=== PATIENT | female | born 1955 | race Caucasian/White ===

== ENCOUNTER 2019-10-14 08:20 | Day surgery (SDC) | payer OTHER ==
[2019-10-14 08:28] LABS: Absolute Lymphocytes (CBC) 1.1 K/uL (0.7-4.9); Lymphocytes % 29.8 % (15.3-44.8); MPV 8.1 fL (7.6-11.3); RBC Red Blood Cell Count 5.01 M/uL (3.86-4.86)
--- NOTE | 2019-10-14 08:29 | RAD REPORT ---
EXAM DESCRIPTION: RAD - Chest Pa And Lat (2 Views) - 10/14/2019 8:13 am CLINICAL HISTORY: preop, pending breast surgery COMPARISON: None TECHNIQUE: Frontal and lateral views of the chest were obtained. FINDINGS: The lungs are clear. Heart size is normal and central vasculature is within normal limit s. No pleural effusion or pneumothorax seen. No acute bony finding noted. No aortic abnormality. IMPRESSION: No acute cardiopulmonary process.
[2019-10-14] MEDS ORDERED: CEFAZOLIN/SWI 1gm 1 GM/10 ML SYR ONE (08:32)
[2019-10-14] MEDS ORDERED: SCOPOLAMINE HYDROBROMIDE PATCH TD ONE (08:32)
[2019-10-14] MEDS ORDERED: Ringers Lactate 1,000 ML IV ONE ×3 (08:32→11:54)
[2019-10-14] MEDS ORDERED: NS 0.9% VIAL 40 ML ONE (08:51)
[2019-10-14] MEDS ORDERED: GENTAMICIN SULF 80 MG/2ML INJ ONE (08:51)
[2019-10-14] MEDS ORDERED: CEFAZOLIN SODIUM 1 GM/VIAL ONE (08:51)
[2019-10-14] MEDS ORDERED: LIDOCAINE 1% W/EPI 1:100,000 MDV 20 ML VIAL ONE (08:52)
[2019-10-14] MEDS ORDERED: BACITRACIN 50000 UNIT VIAL ONE (08:52)
[2019-10-14] MEDS ORDERED: Mastisol Adhesive Liq ONE (08:52)
--- OUTSIDE RECORDS SUMMARY | 2019-10-14 09:05 | XMS REPORT | Continuity of Care Document ---
:1955 Author Organization [employer] Care Team Providers Name Role Phone [employer] Unavailable Un available Problems Problem Status Onset Classification Date Comments Sourc e Date Reported HTN Active Problem 10/04/2019 eCW: Artie monsivais (hypertension) [facility] Encounter for Active Diagnosis 10/03/2019 eCW: [facility] general adult [facility] medical Family examination Practice without abnormal findings Screening for Active Diagnosis 10/03/2019 eCW: [facility] osteoporosis [facility] Encounter for Active Diagnosis 10/03/2019 eCW: [facility] BMI Active Diagnosis 10/03/2019 eCW: Artie monsivais 28.0-28.9,adult [facility] Medications Medication Details Route Status Patient Ordering Order Source Instructions Provider Date Co Q-10 not NA Active Travis eCW: [facility] MAGNESIUM OTC not NA Active Travis eCW: [facility] Vitamin D3 not NA Active Travis eCW: [facility] lisinopril 1 tab(s) orally Active 20 mg orally Travis eCW: Soria gar once a day [facility] Allergies, Adverse Reactions, Alerts Substance Category Reaction Severity Reaction Status Date Comments S ource type Reported N.K.D.A. Adverse Info Not Adverse eCW: Reaction Available Reaction 0 Suga r [facility] Immunizations No Data Provided for This Section Results No Data Provided for This Section Pathology Reports No Data Provided for This Section Diagnostic Reports No Data Provided for This Section Consultation Notes No Data Provided for This Section Discharge Summaries No Data Provided for This Section History and Physicals No Data Provided for This Section Vital Signs Vital Sign Value Date Comments Source Height 64 09/06/2019 eCW: [facility] Weight 168.4 09/06/2019 eCW: [facility] Temperature Oral (F) 96.7 F 09/06/2019 eCW: Soria gar [facility] Diastolic (mm Hg) 76 09/06/2019 eCW: [facility] Systolic (mm Hg) 126 09/06/2019 eCW: [facility] Encounters No Data Provided for This Section Procedures No Data Provided for This Section Assessment and Plan No Data Provided for This Section Plan of Care No Data Provided for This Section Social History No Data Provided for This Section Family History No Data Provided for This Section Advance Directives No Data Provided for This Section Functional Status No Data Provided for This Section
--- OUTSIDE RECORDS SUMMARY | 2019-10-14 09:05 | XMS REPORT ---
:1955 Author Organization [employer] Care Team Providers Name Role Phone Travis, Shital Provider Role Unavailable Allergies No Known Allergies Problems Problem Type Condition Code Onset Dates Condition Statu s Problem HTN (hypertension) I10 Active Medications No Known Medications Results No Known Results Summary Purpose [employer] Submission
--- OUTSIDE RECORDS SUMMARY | 2019-10-14 09:05 | XMS REPORT | Clinical Summary ---
:1955 Author Organization [facility] [employer] [facility] Address [address] [place] [address] Care Team Providers Name Role Phone Reza Mayfield MD Primary Care Provider Allergies No Known Allergies Medications Medication Sig Dispensed Refills Start End Date Status Date estradiol (ESTRACE) 2 MG Take 2 mg 0 Active tablet by mouth daily. medroxyPROGESTERone Take 5 mg 0 Active (PROVERA) 5 MG tablet by mouth daily. lisinopril (PRINIVIL) 20 Take 1 90 tablet 3 Active mg tabletIndications: tablet (20 0 Essential hypertension mg total) by mouth daily. lisinopril Take 1 90 tablet 1 11/13/19 Discontin ued (PRINIVIL,ZESTRIL) 20 mg tablet (20 9 19 (Reorder) tabletIndications: mg total) Essential hypertension by mouth daily. hydroCHLOROthiazide Take 1 90 tablet 1 11/13/19 Discontinued (HYDRODIURIL) 25 MG tablet (25 9 19 (Discontinued by tabletIndications: Pedal mg total) another edema by mouth clinician) daily. lisinopril Take 1 90 tablet 1 05/05/19 Discontin ued (PRINIVIL,ZESTRIL) 20 mg tablet (20 9 20 (Reorder) tabletIndications: mg total) Essential hypertension by mouth daily. Active Problems Problem Noted Date Chest pain 05/08/2018 Hematometra 01/09/2017 Cervical stenosis (uterine cervix) 01/09/2017 Encounters Date Type Specialty Care Team Description 05/05/2019 Refill Cardiology Magaly Luna MA Med Refill 04/26/2019 Hospital Encounter Radiology Oneal Mauricio Brea st cancer screening by MD mammogram 04/15/2019 Transcribe Orders Access Oneal Mauricio Breas t cancer screening by mammogram (Prim lizette Dx) 11/16/2018 Orders Only Cardiology Alpa Pham RN 11/12/2018 Orders Only Cardiology Alpa Pham RN Essential hypertension (Primary Dx); Dyslipidemia; Pedal edema after 10/13/2018 Family History Medical History Relation Name Comments No Known Problems Father Diabetes Mother Hypertension Mother Relation Name Status Comments Father Mother Alive Sister Alive Social History Tobacco Use Types Packs/Day Years Used Date Never Smoker Smokeless Tobacco: Never Used Alcohol Use Drinks/Week oz/Week Comments Yes 4 Glasses of wine 4.0 Sex Assigned at Date Recorded Not on file Job Start Date Occupation Industry Not on file Not on file Not on file Travel History Travel Start Travel End No recent travel history available. Last Filed Vital Signs Not on file Plan of Treatment Health Maintenance Due Date Last Done Comments CERVICAL CANCER SCREENING 1978 COLONOSCOPY SCREENING 10/08/2007 SHINGLES VACCINES (#1) 10/08/2007 INFLUENZA VACCINE 11/19/2019 BREAST CANCER SCREENING 04/07/2020 04/07/2018, 03/31/2017, 02/21/2016, Additional history exists Procedures Procedure Name Priority Date/Time Associated Comments Diagnosis MAMMO SELF Routine 04/26/2019 10:37 AM Breast cancer Results for this REQUESTING SCREENING INDUSTRIAL EDUCATION INSTRUCTOR screening by procedu re are in BILATERAL [place] mammogram the results section. after 10/13/2018 Results MAMMO SELF REQUESTING SCREENING BILATERAL [place] (04/26/2019 10:37 AM INDUSTRIAL EDUCATION INSTRUCTOR) Specimen Narrative Performed At PROCEDURE: MAMMO SELF REQUESTING SCREENI NG BILATERAL W [place] [facility] Computer aided detection was utilized for the interpre tation of the digital bilateral screening mammography. INDICATION: Routine screening. COMPARISON: 04/07/2018 through 5 DENSITY: There are scattered areas of fi broglandular density. FINDINGS: Bilateral subglandular saline implants obs cure a portion of the breast parenchyma. A few coarse benign-appearing c alcifications are noted bilaterally. There is no suspicious mass, microc alcification, or architectural distortion identified. There is no significant interval change compared to prior exams. IMPRESSION: No mammographic evidence o f malignancy. RECOMMENDATION: Correlation with physical exam and ada ual screening mammography. BI-RADS 2: BENIGN This facility is accredited by the [employer] for Mammography. A negative x-ray report should not delay biopsy if a d ominant or clinically suspicious mass is present. Not all cance rs are identified by x-ray. 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
--- OUTSIDE RECORDS SUMMARY | 2019-10-14 09:06 | XMS REPORT ---
:1955 Author Organization [employer] Care Team Providers Name Role Phone TravisShital Provider Role Unavailable Allergies, Adverse Reactions, Alerts Substance Reaction Event Type N.K.D.A. Info Not Available Non Drug Allergy Problems Problem Type Condition Code Onset Dates Condition Statu s Assessment Encounter for general adult medical Z00.00 Active examination without abnormal findings Problem HTN (hypertension) I10 Active Assessment Screening for osteoporosis Z13.820 A ctive Assessment HTN (hypertension) I10 Active Assessment Encounter for screening Z13.9 Acti ve Assessment BMI 28.0-28.9,adult Z68.28 Active Medications Medication Code Code Instructions Start End Status Dosage System Date Date Co Q-10 NDC 0 Active not defined MAGNESIUM OTC NDC 0 Active not defined Vitamin D3 NDC 0 Active not defined lisinopril NDC [id number] 20 mg orally Active 1 ta b(s) once a day Vital Signs Date/Time: September 06, 2019 Height 64 in Weight 168.4 lbs Temperature 96.7 F Pulse 80 /min BMI 28.90 Index Blood Pressure Diastolic 76 mm Hg Blood Pressure Systolic 126 mm Hg Results Name Result Date Reference Range Unit Abnormali ty Flag Q-T-4, FREE ----T4, FREE 1.3 20190906 0.8-1.8 ng/dL N Q-TSH, 3RD GENERATION ----TSH 2.52 20190906 0.40-4.50 mIU/L N Q-CMP W/EGFR ----ALBUMIN/GLOBUL 1.7 20190906 1.0-2.5 (calc) N IN RATIO ----GLOBULIN 2.6 20190906 1.9-3.7 g/dL (calc) N ----ALKALINE 60 20190906 37-153 U/L N PHOSPHATASE ----BILIRUBIN, 1.3 20190906 0.2-1.2 mg/dL H TOTAL ----CHLORIDE 100 20190906 98-110 mmol/L N ----ALT 17 20190906 6-29 U/L N ----POTASSIUM 4.6 20190906 3.5-5.3 mmol/L N ----AST 18 20190906 10-35 U/L N ----SODIUM 134 20190906 135-146 mmol/L L ----BUN/CREATININE NOT APPLICABLE 20190906 6-22 (calc) RATIO ----eGFR 110 20190906 > OR = 60 mL/min/1.[address] [place] [address] ----CALCIUM 9.5 20190906 8.6-10.4 mg/dL N ----CARBON DIOXIDE 28 20190906 20-32 mmol/L N ----ALBUMIN 4.3 20190906 3.6-5.1 g/dL N ----PROTEIN, TOTAL 6.9 20190906 6.1-8.1 g/dL N ----GLUCOSE 95 20190906 65-99 mg/dL N ----UREA NITROGEN 9 20190906 7-25 mg/dL N (BUN) ----CREATININE 0.67 20190906 0.50-0.99 mg/dL N ----eGFR NON-AFR. 95 20190906 > OR = 60 mL/min/1.73 [place] [address] Q-CBC (INCLUDES DIFF/PLT) ----MCHC 33.6 20190906 32.0-36.0 g/dL N ----MCH 30.1 20190906 27.0-33.0 pg N ----PLATELET COUNT 301 20190906 140-400 Thousand/uL N ----RDW 12.9 20190906 11.0-15.0 % N ----BASOPHILS 0.5 20190906 % N ----ABSOLUTE 2490 20190906 2254-8083 cells/uL N NEUTROPHILS ----ABSOLUTE 1324 20190906 850-3900 cells/uL N LYMPHOCYTES ----MPV 9.8 20190906 7.5-12.5 fL N ----ABSOLUTE 22 20190906 0-200 cells/uL N BASOPHILS ----HEMATOCRIT 40.8 32485589 35.0-45.0 % N ----NEUTROPHILS 56.6 20190906 % N ----MCV 89.7 [id number] 80.0-100.0 fL N ----ABSOLUTE 515 20190906 200-950 cells/uL N MONOCYTES ----RED BLOOD CELL 4.55 20190906 3.80-5.10 Million/uL N COUNT ----ABSOLUTE 48 20190906 15-500 cells/uL N EOSINOPHILS ----HEMOGLOBIN 13.7 20190906 11.7-15.5 g/dL N ----EOSINOPHILS 1.1 20190906 % N ----WHITE BLOOD 4.4 20190906 3.8-10.8 Thousand/uL N CELL COUNT ----LYMPHOCYTES 30.1 20190906 % N ----MONOCYTES 11.7 11742635 % N Bone Density Testing (SLFP) Q-VITAMIN D2, D3, 25-HYDROXY, LC/MS/MS ----VITAMIN D, <4 20190906 ng/mL 25-OH, D2 ----VITAMIN D, 53 20190906 ng/mL 25-OH, D3 ----VITAMIN D, 53 20190906 30-100 ng/mL 25-OH, TOTAL Q-MAGNESIUM ----MAGNESIUM 2.1 20190906 1.5-2.5 mg/dL N Q-LIPID PANEL WITH REFLEX TO DIRECT LDL ----CHOL/HDLC 3.9 10212714 <5.0 (calc) N RATIO ----LDL-CHOLESTERO 175 20190906 mg/dL H L (calc) ----TRIGLYCERIDES 93 20190906 <150 mg/dL N ----HDL 68 20190906 > OR = 50 mg/dL N CHOLESTEROL ----CHOLESTEROL, 264 20190906 <200 mg/dL H TOTAL Q-HEMOGLOBIN A1c ----HEMOGLOBIN A1c 5.2 [id number] <5.7 % of total N Hgb Summary Purpose eClinicalWorks Submission
--- OUTSIDE RECORDS SUMMARY | 2019-10-14 09:07 | XMS REPORT | Continuity of Care Document ---
:1955 Author Organization [facility] t Address [address] [place] [address] Care Team Providers Name Role Phone Reza Mayfield MD Primary Care Physician Jeremy PECK Attending Clinician Unavailable Mignon Mauricio MD Attending Clinician Jose Angel Mauricio Attending Clinician Unavailable Vero ACOSTA Attending Clinician Unavailable Dangelo Schneider Attending Clinician Unavailable Payers Payer Name Policy Type Policy Number Effective Date Expiration Date S anjel AETNAAETNA xxxxxxxxxx 2008 [place] HMO,POS,EPO, 00:00:00 [employer] MC/[id number] /04/2008-PresentH MO Problems Condition Condition Condition Status Onset Resolution Last Treating Co mments Source Name Details Category Date Date Treatment Clinician Date Chest pain Chest pain Disease Active 2018-0 [place] 1-19 [facility] 00:00: st 00 Hematometr Hematometr Disease Active [place] a a 9-22 [facility] 00:00: st 00 Cervical Cervical Disease Active 2016- [place] stenosis stenosis - [facility] i (uterine (uterine 00:00: st cervix) cervix) 00 HTN Problem Active 2019-10-04 Memor ia (hypertens 04:15:12 l ion) HTN [place] (hypertens ion) Active Problem 10/04/2019 eCW: [facility] Encounter Diagnosis Active 2019-10-03 Memoria for 04:10:32 l general [place] adult Encounter medical for examinatio general n without adult abnormal medical findings examinatio n without abnormal findings Active Diagnosis 10/03/2019 eCW: [facility] Screening Diagnosis Active 2019-10-03 Memoria for 04:10:32 l osteoporos Jama n is Screening for osteoporos is Active Diagnosis 10/03/2019 eCW: [facility] Encounter Diagnosis Active 2019-10-03 Memoria for 04:10:32 l screening [place] Encounter for screening Active Diagnosis 10/03/2019 eCW: [facility] BMI Diagnosis Active 2019-10-03 Mem oria 28.0-28.9, 04:10:32 l adult BMI [place] 28.0-28.9, adult Active Diagnosis 10/03/2019 eCW: [facility] Allergies, Adverse Reactions, Alerts Allergy Allergy Status Severity Reaction(s) Onset Inactive Treating Comm ents Source Name Type Date Date Clinician N.K.Jocelin.A. N.K.Jocelin.A. Active Info Not Michael sarah Available 5-19 l 00:00: [place] 00 Family History Family Member Diagnosis Comments Start Date Stop Date Source Natural father No Known Problems [place] [employer] Natural mother Diabetes [facility] thodi Natural mother Hypertension [facility] Social History Social Habit Start Date Stop Date Quantity Comments Source Sex Assigned At [facility] ethodist Alcohol intake 2018-07-12 2018-07-12 Current drinker [place] [facility] 00:00:00 00:00:00 of alcohol (finding) Smoking Status Start Date Stop Date Source Never smoker [facility] Medications Ordered Filled Start Stop Current Ordering Indication Dosage Frequency Signature Comments Components Source Medication Medication Date Date Medication? Clinician (SIG) Name Name Co Q-10 Yes Shital Travis not Michael sarah 15 defined l 04:10: MAGNESIUM Yes Shital Travis not Me moria OTC 15 defined l 04:10: Vitamin D3 Yes Shital Travis not M emoria 615 defined l 04:10: lisinopril Yes Shital Travis 1 tab(s) Memoria 615 l 04:10: lisinopril Yes Essential 20mg QD Take 1 [place] (PRINIVIL) 1-16 hypertensio tablet (20 Methodi 20 mg 00:00: n mg total) st tablet 00 by mouth daily. lisinopril 2019-0 2020- No Essential 20mg QD Take 1 [place] (PRINIVIL,Z 7-26 -16 hypertensio tablet (20 Methodi ESTRIL) 20 00:00: 00:00 n mg total) s t mg tablet 00 :00 by mouth daily. estradiol Yes 2mg QD Take 2 mg [place] (ESTRACE) 2 2-04 by mouth Meth neva MG tablet 09:51: daily. st 28 medroxyPROG Yes 5mg QD Take 5 mg [place] ESTERone 2-04 by mouth Method[facility] (PROVERA) 5 09:51: daily. st MG tablet 28 lisinopril 2018- No Essential 20mg QD Take 1 [place] (PRINIVIL,Z 1-16 - hypertensio tablet (20 [facility] ESTRIL) 20 00:00: 00:00 n mg total) s t mg tablet 00 :00 by mouth daily. hydroCHLORO 2018- No Pedal edema 25mg QD Take 1 [place] thiazide 05-05 tablet (25 Meth neva (HYDRODIURI 00:00: 00:00 mg total) st L) 25 MG 00 :00 by mouth tablet daily. Vital Signs Vital Name Observation Time Observation Value Comments Source Height 2019-09-06 14:40:00 [facility] Weight 2019-09-06 14:40:00 [facility] Temperature Oral (F) 2019-09-06 14:40:00 96.7 F [facility] Diastolic (mm Hg) 2019-09-06 14:40:00 [facility] Systolic (mm Hg) 2019-09-06 14:40:00 [facility] Procedures Procedure Date / Time Performed Performing Clinician Sourc e MAMMO SELF REQUESTING 2019-04-26 10:37:23 Oneal Mauricio on [facility] SCREENING BILATERAL [place] Plan of Care Planned Activity Planned Date Details Comments Source Future Scheduled 2020-04-07 BREAST CANCER [place] [facility]ist Test 00:00:00 SCREENING [code = BREAST CANCER SCREENING] Future Scheduled 2019-11-19 INFLUENZA VACCINE [place] [facility] Test 00:00:00 [code = INFLUENZA VACCINE] Future Scheduled 2007-10-08 COLONOSCOPY SCREENING [place] [facility] Test 00:00:00 [code = COLONOSCOPY SCREENING] Future Scheduled 2007-10-08 SHINGLES VACCINES [place] [facility] Test 00:00:00 (#1) [code = SHINGLES VACCINES (#1)] Future Scheduled 1978 Screening for [facility] thodist Test 00:00:00 malignant neoplasm of cervix (procedure) [code = 862450180] Encounters Start End Encounter Admission Attending Care Care Encounter Source Date/Time Date/Time Type Type Clinicians Facility Department ID 2019-10-03 2019-10-03 [place] [id number] [facility] 10:39:00 10:39:00 [facility] 2019-09-06 2019-09-06 Outpatient [place] [id number] [facility]inic 09:40:00 09:40:00 [facility] 2019-04-26 2019-04-26 Outpatient ALEXIS, [facility] [id number] [place] 00:00:00 00:00:00 GENE [address] 2019-01-10 2019-01-10 Outpatient AlexisCAROLYNN guerrierN [id number] [facility] 15:10:00 15:10:00 Gene OBGYN 2018-05-18 2018-05-18 Outpatient Alexis, CAROLYNN LANEOBGYN [id number] [facility] 08:03:00 08:03:00 Gene OBGYN 2018-03-04 2018-03-04 Outpatient Alexis, CAROLYNN SWOBGYN [id number] [facility] 15:08:00 15:08:00 Gene OBGYN 2017-09-15 2017-09-15 Outpatient Alexis, CAROLYNN LANEOBGYN [id number] [facility] 15:34:00 15:34:[address] OBGYN 2017-06-26 2017-06-26 Outpatient Alexis, RICHYGYRanda SWOBGYN [id number] [facility] 15:35:00 15:35:[address] OBGYN 2017-06-08 2017-06-08 Outpatient Alexis, ARIANAOBGYRanda LANEOBGYN [id number] [facility] 10:55:00 10:55:[address] OBGYN 2017-05-25 2017-05-25 Outpatient Alexis, ARIANAOBKAE SWOBGYN [id number] [facility] 10:37:00 10:37:[address] OBGYN 2017-01-09 2017-01-09 Outpatient CAROLYNN MauricioGYN [id number] [facility] 11:18:00 11:18:00 Gene OBGYN 2017-01-08 2017-01-08 Outpatient CAROLYNN MauricioGYN [id number] [facility] 08:28:00 08:28:00 Gene OBGYN 2017-01-06 2017-01-06 Outpatient CAROLYNN MauricioGYN [id number] [facility] 15:12:00 15:12:00 Gene OBGYN 2016-11-11 2016-11-11 Outpatient SchneiderPaulina monsivaisGYN [id number] [facility] 10:13:00 10:13:00 st OBGYN 2016-09-17 2016-09-17 Outpatient SchneiderPaulina monsivaisOBGYN [id number] [facility] 16:57:00 16:57:00 st OBGYN 2016-09-08 2016-09-08 Outpatient SchneiderPaulina monsivaisGYN [id number] [facility] 15:15:00 15:15:00 st OBGYN Results Test Description Test Time Test Comments Results Result Sourc e Comments MAMMO SELF 2020-01-0 PROCEDURE: MAMMO [place] REQUESTING 7 SELF REQUESTING [facility] SCREENING 11:13:11 SCREENING BILATERAL BILATERAL [place] Computer aided detection was utilized for the interpretation of the digital bilateral screening mammography. INDICATION: Routine screening. COMPARISON: 04/07/2018 through 02/12/2015 DENSITY: There are scattered areas of fibroglandular density. FINDINGS: Bilateral subglandular saline implants obscure a portion of the breast parenchyma. A few coarse benign-appearing calcifications are noted bilaterally. There is no suspicious mass, microcalcification, or architectural distortion identified. There is no significant interval change compared to prior exams. IMPRESSION: No mammographic evidence of malignancy. RECOMMENDATION: Correlation with physical exam and annual screening mammography. BI-RADS 2: BENIGN This facility is accredited by the [employer] for Mammography. A negative x-ray report should not delay biopsy if a dominant or clinically suspicious mass is present. Not all cancers are identified by x-ray. [id number]
[2019-10-14] MEDS ORDERED: MIDAZOLAM HCL 2 MG/2 ML INJ ONE (09:16)
[2019-10-14] MEDS ORDERED: LIDOCAINE 2% MPF 5 ML VIAL ONE (09:17)
[2019-10-14] MEDS ORDERED: propofoL 200 MG/20 ML VIAL IV ONE (09:17)
[2019-10-14] MEDS ORDERED: FENTANYL CITR 250 MCG/5 ML ONE (09:17)
[2019-10-14] MEDS ORDERED: ROCURONIUM 50 MG/5 ML VIAL IV ONE (09:18)
[2019-10-14] MEDS ORDERED: LANO/MINERAL OIL/PETRO 3.5 GM ONE (09:40)
[2019-10-14] MEDS ORDERED: KETOROLAC 30 MG/ML INJ ONE ×2 (09:50→12:33)
[2019-10-14] MEDS ORDERED: dexAMETHasone 10 MG/ML VIAL ONE (09:50)
[2019-10-14] MEDS ORDERED: ONDANSETRON 4 MG/2 ML VIAL ONE ×2 (09:54→14:21)
[2019-10-14] MEDS ORDERED: GLYCOPYRROLATE 0.2 MG/ML SYR ONE ×2 (10:02→13:10)
[2019-10-14] MEDS ORDERED: NS 0.9% VIAL 20 ML ONE (10:03)
[2019-10-14] MEDS ORDERED: VECURONIUM 10 MG/VIAL IV ONE (10:03)
[2019-10-14] MEDS ORDERED: MEPERIDINE HCL 25 MG/ML SYR ONE (11:55)
[2019-10-14] MEDS ORDERED: NEOSTIGMINE 1 MG/ML -5 ML ONE (13:10)
[2019-10-14] MEDS: HYDROMORPHONE HCL 2 MG/ML inj ONE ×4 (13:32→13:55)
[2019-10-14] MEDS ORDERED: CODEINE 30MG/APAP 300MG TAB ONE (15:13)
[2019-10-14 15:50] VITALS: TEMP 97
[2019-10-14 15:51] VITALS: BP 107/62; O2SAT 99
--- NOTE | 2019-10-14 18:14 | EKG ---
Test Date: 2019-10-14 Test Time: 08:01:10 Pharmacy Service Associate: RICCARDO MEASUREMENT RESULTS: Intervals: Rate: 84 MD: 146 QRSD: 82 QT: 408 QTc: 482 [place]: P: 45 MD: 146 QRS: 56 T: 39 INTERPRETIVE STATEMENTS: Normal sinus rhythm Low voltage QRS Nonspecific ST and T wave abnormality Prolonged QT Abnormal ECG No previous ECG available for comparison Electronically Signed On 10-14-19 18:12:37 CDT by Dustin Jaramillo
--- NOTE | 2019-10-15 01:27 | OP ---
Surgeon: Eliud Herrera MD Jewelry Salesperson: Ignacio. Preoperative Diagnosis: Breast descent status post breast augmentation. Postoperative Diagnosis: Breast descent status post breast augmentation. Procedure Performed: Explantation and lift. Anesthesia: General. Description Of Procedure: After satisfactory induction of general seizure, DuraPrep was used to prep the chest, dry sterile drapes placed in the usual manner. A 42 template was used to outline the right and left areolas. Then incisions were made on the transverse and curvilinear markings. Intervening skin was de-epithelialized with dermabrader or EpiCut and then the transverse incision was taken down. The flap was elevated proximally to 1.2 cm thickness toward the sternum, clavicle, anterior axillary line. Both sides were done simultaneously. Then inferior incision was made at the 12 o'clock position on the breast mound. The implants were removed. They were smooth saline. The right weighed 314, left weighed 316 and the implants were in the prepectoral position. Then, the deepithelialized tissue was made into a cone with 2-0 PDS suture and straps were elevated at 12 o'clock, 1:30, and 3 o'clock position in the right breast. The straps were then woven in and out the pectoralis muscle back to base of the cone, back to pectoralis muscle, back to base of cone, sewn to themselves with 2-0 PDS suture. This was done for 12 o'clock and 130 straps. The 3 o'clock strap was sewn over the sternum at the 3 o'clock position with 2- 0 Ethibond. Left side done in a mirror-image manner. The wound was temporarily stapled shut. The dog ears were marked out laterally. Then patient was returned supine. Kirti were removed. Dog ears were cut out. The wounds were irrigated with antibiotic solution and then closed in layers. 10 JOHNIE were brought out the axilla, sewn in place with 2-0 silk and closed with 3-0 Vicryl subcu, 3-0 PDS running subcuticular, tied in lateral to medial and medial to lateral, tied in the vertical meridian of the breast. Then, the patient was sat up, site for new nipple-areolar complex was marked out, placed supine. Tissue cored out and then the nipple delivered, sewn with 4-0 PDS interrupted followed by 4-0 PDS running subcuticular. Dressings consisted of tincture of benzoin, Steri-Strips, 5x5s, fluffs, and Ike wrap. The patient tolerated the procedure well and returned to recovery room. Amount removed from the right breast was 20 g, left breast 8 g. APRIL/PAL Voice ID: [id number] Report ID: [id number] MTDD
== END 2019-10-14 15:48 | disposition home health service (06) ==
LOC: OR 08:20
PROVIDERS: ATTEND Specialist
PROC: 0HPT0JZ Removal of Synthetic Substitute from Right Breast, Open Approach (ICD-10-PCS; 2019-10-14)
PROC: 0HSV0ZZ Reposition Bilateral Breast, Open Approach (ICD-10-PCS; 2019-10-14)
PROC: 0HPU0JZ Removal of Synthetic Substitute from Left Breast, Open Approach (ICD-10-PCS; principal; 2019-10-14 09:00)
DX: N65.1 Disproportion of reconstructed breast (principal); N60.42 Mammary duct ectasia of left breast; Z01.812 Encounter for preprocedural laboratory examination; Z01.810 Encounter for preprocedural cardiovascular examination; R94.31 Abnormal electrocardiogram [ECG] [EKG]; Z01.818 Encounter for other preprocedural examination
CPT/HCPCS: 93005; 85025; 36415; 88305; 71046; 19328; 19316; J2704; J1580; J2250; J1170; J3010; J1100; J2175; J2710; J0690 ×2; J7120 ×3; J2405 ×2